=== PATIENT | female | born 1985 | race Caucasian/White ===

== ENCOUNTER 2021-08-18 21:52 | Emergency (ER) | payer OTHER, SELFPAY ==
[2021-08-18 22:11] VITALS: BP 130/67; PULSE 74; RESP 18; TEMP 36.6; O2SAT 99; BMI 41.1
--- NOTE | 2021-08-18 23:57 | ED_ITS ---
HPI - Dental/Oral General Chief complaint: Dental/Oral Stated complaint: Dental pain Time Seen by Provider: 08/18/21 23:40 Source: patient Mode of arrival: ambulatory Limitations: no limitations History of Present Illness HPI Narrative: Patient presents to ED for right open molar tooth pain for a week. Patient den ies any facial swelling, neck swelling, drooling, fever, chills, chest pain, shortness of breath any recent trauma to the face. MD Complaint: tooth pain Related Data Previous Rx's Medication Instructions Recorded clindamycin HCl 300 mg capsule 300 mg PO TID 10 Days #30 cap 08/19/21 oxycodone-acetaminophen 5 mg-325 1 tab PO TID PRN #9 tab 08/19/21 mg tablet (Percocet) Allergies Allergy/AdvReac Type Severity Reaction Status Date / Time aspirin [ASA] Allergy Unknown ANAPHYLAXIS, Verified 08/19/21 00:07 facial swelling, facial swelling penicillamine Allergy Unknown facial Verified 08/19/21 00:07 swelling Penicillins [PENICILLINS] Allergy Unknown ANAPHYLAXIS Verified 08/19/21 00:07 Penicillins Allergy Unknown facial Uncoded 07/25/19 00:00 swelling Review of Systems Review of Systems: Toothache Yes all other systems are reviewed and are negative PMFSH Social History Social History Advance Directives: No Advance Directives Information Provided: No Patient : No Physical Exam Vital Signs: Vital Signs: Last Vital Signs Temp 97.9 F 08/18/21 22:11 Pulse 74 08/18/21 22:11 Resp 18 08/18/21 22:11 BP 130/67 08/18/21 22:11 Pulse Ox 99 08/18/21 22:11 BMI result Body Mass Index 41.1 Const: General: cooperative, healthy appearing, comfortable, no acute distress, well developed, alert, awake and Physically active Orientation/con sciousness: patient oriented x3 HENMT: Other: Negative for any facial swelling or mass on palpation Head: Yes normal to inspection, Yes No palpable skull fracture present, Yes normocephalic, Yes atraumatic and No abrasion Teeth image: 1. Tenderness on palpation. Negative for pus discharge, gum swelling, redness, or trismus. Eyes: General: appearance normal, both eyes and all related structures Neck: Neck: Yes normal visual inspection, Yes full ROM, Yes no lymphadenopathy, Yes no meningeal signs, Yes trachea midline, Yes supple, No anterior neck swelling and No tender Chest: Chest palpation & inspection: normal inspection of the chest and normal palpation of entire chest wall Resp: Effort & Inspection: normal respiratory effort and able to speak in complete sentences Auscultation: clear to auscultation bilaterally Cardio: Jugular venous distension: no JVD Heart sounds: S1 normal heart sound present and S2 normal heart sound present GI: Inspection: Yes normal to inspection and No abdominal wall ecchymosis Palpation (GI): Soft to palpation, not firm, nontender, no guarding and not rigid : General: No CVA tenderness and Yes no CVA tenderness Back/Spine/Pelvis: Back: no CVA tenderness, No CVA tenderness and No back tenderness Skin: General skin exam: no rashes or lesions noted and elasticity normal Neuro: General: patient oriented x3, gait normal, no meningeal signs and CN's II-XI intact bilaterally Cranial nerves: Yes CN's II-XII intact bilaterally Extrem: General: Yes normal to inspection and Yes full ROM Psych: Appearance: grossly normal, well kempt and not disheveled Course Course Course Narrative: Toothache. Reevaluation(s) Reevaluation #1: Patient given pain medication. Patient will be discharged with pain medication antibiotics. Patient is safe for discharge MDM - Dental/Oral MDM Narrative Medical decision making narrative: Dental pain Discharge Plan Discharge Clinical Impression: Toothache Patient Disposition: Home, Self-Care Instructions: Toothache (ED) Additional Instructions: Regrese al servicio de urgencias de inmediato por cualquier hinchaz?n facial, babeo, cambio de voz, dolor de muelas intenso, masa palpable en las enc?as o la evonne, o cualquier otro s?ntoma preocupante. Debe hacer un seguimiento con un dentista lo antes posible. Prescriptions: New clindamycin HCl 300 mg capsule 300 mg PO TID 10 Days Qty: 30 0RF oxycodone-acetaminophen [Percocet] 5-325 mg tablet 1 tab PO TID PRN (Reason: pain) Qty: 9 0RF Stand Alone Forms: Work/School Release Interventions: ED Discharge Assessment Last Done: 08/19/21 00:25 Discharge Date/Time: 08/19/21 00:26 Print Language: Ukrainian
[2021-08-19] MEDS: oxyCODONE HCl Immed Release 5 MG TABLET PO (00:08)
== END 2021-08-19 00:26 | disposition home or self-care (01) ==
PROVIDERS: Emergency Provider Internal Medicine
DX: K08.89 Other specified disorders of teeth and supporting structures (principal)
CPT/HCPCS: 99283; 99284

== ENCOUNTER 2021-08-21 17:41 | Emergency (ER) | payer OTHER, SELFPAY ==
[2021-08-21 17:48] VITALS: BP 165/83; PULSE 103; RESP 18; TEMP 36.1; O2SAT 100; BMI 40.4
[2021-08-21] MEDS: dexAMETHasone sod phosphate 10 MG/ML VIAL IVPUSH (18:14)
[2021-08-21] MEDS: Famotidine/PF 20 MG/2 ML VIAL IVPUSH (18:14)
[2021-08-21] MEDS: diphenhydrAMINE HCL 50 MG/ML VIAL IVPUSH (18:14)
[2021-08-21 18:27] VITALS: PULSE 84; RESP 15; O2SAT 100
--- NOTE | 2021-08-21 19:06 | PC.NURSE ---
PT THROAT S/SX BETTER DRINKING WATER AND SPEAKING IN FULL SENTENCES.
--- NOTE | 2021-08-21 19:27 | ED_ITS ---
HPI - Allergic Reaction General Chief complaint: Allergic Reaction <GRACIE Estrada Last Filed: 08/21/21 19:37> Stated complaint: allergic reaction/diff breathing <GRACIE Estrada Last Filed: 08/21/21 19:37> Time Seen by Provider: 08/21/21 17:58 <GRACIE Estrada Last Filed: 08/21/21 19:37> History of Present Illness HPI narrative: Patient complains that she took a Motrin and felt like her face was swollen and felt and itchiness in her throat and was concerned she might be having an allergic reaction, she has had allergy to aspirin She denies rash she denies chest pain no vomiting <GRACIE Estrada Last Filed: 08/21/21 19:37> Related Data Home medications: Previous Rx's Medication Instructions Recorded clindamycin HCl 300 mg capsule 300 mg PO TID 10 Days #30 cap 08/19/21 oxycodone-acetaminophen 5 mg-325 1 tab PO TID PRN #9 tab 08/19/21 mg tablet (Percocet) cetirizine 10 mg capsule 10 mg PO DAILY PRN #14 cap 08/21/21 prednisone 20 mg tablet 60 mg PO DAILY 3 Days #9 tab 08/21/21 <GRACIE Estrada Last Filed: 08/21/21 19:37> Allergies/adverse reactions: Allergies Allergy/AdvReac Type Severity Reaction Status Date / Time aspirin [ASA] Allergy Unknown ANAPHYLAXIS, Verified 08/21/21 17:48 facial swelling, facial swelling penicillamine Allergy Unknown facial Verified 08/21/21 17:48 swelling Penicillins [PENICILLINS] Allergy Unknown ANAPHYLAXIS Verified 08/21/21 17:48 Penicillins Allergy Unknown facial Uncoded 07/25/19 00:00 swelling <GRACIE Estrada Last Filed: 08/21/21 19:37> Review of Systems Review of Systems: Positive for facial swelling and throat irritation Negatives are no fever no chills no dizziness weakness no fainting no feeling faint no headache no difficulty breathing or swallowing no chest pain no shortness of breath no abdominal pain no vomiting no skin rash <GRACIE Estrada Last Filed: 08/21/21 19:37> Yes all other systems are reviewed and are negative <GRACIE Estrada Last Filed: 08/21/21 19:37> PMFSH Past Medical History Source: nursing notes reviewed <GRACIE Estrada - Last Filed: 08/21/21 19:37> Medical History: Medical History (Updated 08/21/21 @ 19:32 by GRACIE Estrada) Tooth pain <GRACIE Estrada - Last Filed: 08/21/21 19:37> Social History Social History: Social History Advance Directives: No Advance Directives Information Provided: No <GRACIE Estrada - Last Filed: 08/21/21 19:37> Physical Exam ED Vital Signs: Vital Signs - 24 hr 08/21/21 17:48 08/21/21 18:27 08/21/21 19:57 Temperature 97 F Pulse Rate 103 H 84 65 Respiratory Rate 18 15 15 Blood Pressure 165/83 H 138/75 Pulse Oximetry 100 100 100 BMI result Body Mass Index 40.4 <GRACIE Estrada - Last Filed: 08/21/21 19:37> Vital Signs - 24 hr 08/21/21 17:48 08/21/21 18:27 08/21/21 19:57 Temperature 97 F Pulse Rate 103 H 84 65 Respiratory Rate 18 15 15 Blood Pressure 165/83 H 138/75 Pulse Oximetry 100 100 100 BMI result Body Mass Index 40.4 <GRACIE Tee - Last Filed: 08/21/21 20:02> General appearance is uncomfortable appearing, no acute distress Head is normocephalic atraumatic Eyes are somewhat red with some periorbital edema, pupils equal round reactive extraocular motions are intact Pharynx is normal in appearance with no tongue swelling no uvula or pharyngeal swelling, there is no drooling, no impairment of breathing or swallowing The neck is supple There is no neck swelling The chest is clear to auscultation bilateral no wheezing Heart no murmur Abdomen soft nontender Extremities full range of motion x4 Skin no rash <GRACIE Estrada - Last Filed: 08/21/21 19:37> Course Course Course Narrative: Patient was given antihistamine and steroid with good response At 07:15 case was signed out to physician assistant Robbins to re-evaluate the patient who will be observed for another hour and if all is well to be discharged <GRACIE Estrada - Last Filed: 08/21/21 19:37> Reevaluation(s) Reevaluation #1: On re-evaluation patient reports symptomatic improvement. No appreciable swelling/facial edema. Talking in complete sentences, lungs CTA, no wheezing, uvula midline, no intraoral swelling. Safe for DC at this time <GRACIE Tee - Last Filed: 08/21/21 20:02> Time: 20:02 <GRACIE Tee - Last Filed: 08/21/21 20:02> Discharge Plan Discharge Clinical Impression: Allergic reaction <GRACIE Estrada Last Filed: 08/21/21 19:37> Patient Disposition: Home, Self-Care <GRACIE Estrada Last Filed: 08/21/21 19:37> Instructions: Allergy Testing (ED) <GRACIE Estrada Last Filed: 08/21/21 19:37> Additional Instructions: Your treated with antihistamine and steroids and had a good response Use medications as prescribed Return any time for difficulty breathing, throat swelling, any worse condition or any concerns Follow with primary doctor You may be allergic to Motrin or similar medications so do not take them use Tylenol instead All [id number] pain killers that are not Tylenol may have a cross- reactivity with aspirin and Motrin so use only Tylenol for pain <GRACIE Estrada Last Filed: 08/21/21 19:37> Prescriptions: New cetirizine 10 mg capsule 10 mg PO DAILY PRN (Reason: allergy symptoms) Qty: 14 0RF prednisone 20 mg tablet 60 mg PO DAILY 3 Days Qty: 9 0RF No Action clindamycin HCl 300 mg capsule 300 mg PO TID 10 Days Qty: 30 0RF oxycodone-acetaminophen [Percocet] 5-325 mg tablet 1 tab PO TID PRN (Reason: pain) Qty: 9 0RF <GRACIE Estrada Last Filed: 08/21/21 19:37> Referrals: Physician,None [Primary Care Provider] - 2 days Henry Guillen DO [Physician] - 2 days <GRACIE Estrada Last Filed: 08/21/21 19:37> Stand Alone Forms: Work/School Release <GRACIE Estrada Last Filed: 08/21/21 19:37>
[2021-08-21 19:57] VITALS: BP 138/75; PULSE 65; RESP 15; O2SAT 100
== END 2021-08-21 20:14 | disposition home or self-care (01) ==
PROVIDERS: Emergency Provider Internal Medicine
DX: R21 Rash and other nonspecific skin eruption (principal); T39.015A Adverse effect of aspirin, initial encounter; Z79.899 Other long term (current) drug therapy
CPT/HCPCS: 96374; 96376; 99284; J1100; J1200

== ENCOUNTER 2021-09-12 08:23 | Outpatient (REF) | payer OTHER, SELFPAY ==
[2021-09-12 09:03] LABS: MANUAL DIFF FLAG NO
[2021-09-12 09:50] LABS: Basophils Percent Auto 0.2 % (0-2); Eosinophils Absolute Auto 0.2 X10*3/uL (0.0-0.4); Eosinophils Percent Auto 2.4 % (0-4); Hematocrit 39.2 % (37.0-47.0); Imm Gran Abs Auto 0.07 X10*3/uL (0.00-0.03); Imm Gran Pct Auto 0.7 % (0.0-0.4); Lymphocytes Percent Auto 20.3 % (20-40); Mean Corpuscular HGB Conc 30.6 g/dl (31.0-35.0); Mean Corpuscular Hemoglobin 25.3 pg (27.0-33.0); Mean Corpuscular Volume 82.5 fL (80.0-98.0); Mean Platelet Volume 10.5 fL (9.4-12.3); Monocytes Absolute Auto 0.6 X10*3/uL (0.1-1.2); Monocytes Percent Auto 6.3 % (2-11); Neutrophils Absolute Auto 6.8 x10*3/uL (2.0-8.3); Neutrophils Percent Auto 70.1 % (45-73); Platelet Count 288 X10*3/uL (160-400); Red Blood Count 4.75 X10*6/uL (4.20-5.50); Red Cell Distribution Width 15.3 % (11.0-16.0); White Blood Count 9.8 X10*3/uL (4.8-10.8)
[2021-09-12 10:30] LABS: Alanine Aminotransferase 37 U/L (0-31); Albumin Level 3.8 g/dL (3.5-5.0); Alkaline Phosphatase 113 U/L (39-117); Anion Gap 12 (12-20); Aspartate Amino Transferase 20 U/L (5-31); Bilirubin Total 0.2 mg/dL (0.0-1.0); Blood Urea Nitrogen 11 mg/dL (9-16); Calcium 9.4 mg/dL (8.4-10.2); Carbon Dioxide 27 mmol/L (22-29); Chloride 103 mmol/L (96-108); Cholesterol 165 mg/dL; Estimated Glomerular Filt Rate > 60; Glucose Fasting 110 mg/dL (60-99); HDL Cholesterol 38 mg/dL; LDL Cholesterol Calculated 101 mg/dl; Potassium 4.7 mmol/L (3.3-5.1); Sodium 137 mmol/L (135-145); Total Protein 6.6 g/dL (6.5-8.0); Triglycerides 130 mg/dL
[2021-09-12 10:53] LABS: TSH reflex Free T4 2.09 uIU/mL (0.32-4.0)
== END 2021-09-12 08:24 | disposition home or self-care (01) ==
LOC: HO.LAB 08:23
PROVIDERS: PCP Nurse Practitioner Family; Visit Provider Nurse Practitioner Family
DX: J30.89 Other allergic rhinitis (principal); E78.00 Pure hypercholesterolemia, unspecified; I10 Essential (primary) hypertension; E03.9 Hypothyroidism, unspecified; Z76.89 Persons encountering health services in other specified circumstances
CPT/HCPCS: 36415; 80053; 80061; 84443; 85025

== ENCOUNTER 2021-10-28 09:19 | Outpatient (REF) | payer OTHER, SELFPAY ==
[2021-10-28 17:21] LABS: CT PCR NOT DETECTED (Not Detect.); NG PCR NOT DETECTED (Not Detect.)
[2021-10-29 13:33] LABS: BV Int Neg Control Negative (Negative); BV Int Pos Control Positive (Positive)
[2021-11-02 22:06] LABS: HPV mRNA E6/E7 rflx Not Detected (Not Detected)
== END 2021-10-28 09:20 | disposition home or self-care (01) ==
LOC: HO.LAB 09:19
PROVIDERS: PCP Nurse Practitioner Family; Visit Provider Advanced Practice Midwife
DX: Z01.419 Encounter for gynecological examination (general) (routine) without abnormal findings (principal); Z11.59 Encounter for screening for other viral diseases; Z11.4 Encounter for screening for human immunodeficiency virus [HIV]; Z87.42 Personal history of other diseases of the female genital tract; Z11.3 Encounter for screening for infections with a predominantly sexual mode of transmission; Z11.8 Encounter for screening for other infectious and parasitic diseases; Z11.51 Encounter for screening for human papillomavirus (HPV); E66.9 Obesity, unspecified; Z68.41 Body mass index [BMI] 40.0-44.9, adult; Z88.6 Allergy status to analgesic agent; Z88.0 Allergy status to penicillin; Z98.51 Tubal ligation status; Z83.3 Family history of diabetes mellitus; Z80.49 Family history of malignant neoplasm of other genital organs
CPT/HCPCS: 87480; 87491; 87510; 87591; 87624; 87660; 88142

== ENCOUNTER 2021-11-23 09:21 | Outpatient (REF) | payer OTHER, SELFPAY ==
--- NOTE | 2021-11-23 09:24 | EMG_ITS ---
This is a 35-year-old woman who has had pain, numbness, and tingling in both hands since 2019. PHYSICAL EXAMINATION: On examination, she is alert and oriented with normal intellectual functions. Cranial nerves II through XII are normal. Muscle tone and strength are normal. No Tinel or Phalen sign. IMPRESSION: Carpal tunnel syndrome. Nerve conduction EMG study: Moderate carpal tunnel syndrome bilaterally, slightly worse on the left. Normal EMG of the left C5-T1 innervated muscles. MD DIANA Slaughter/ABBIE / [id number]
== END 2021-11-23 09:22 | disposition home or self-care (01) ==
LOC: HO.NEURO 09:21
PROVIDERS: PCP Nurse Practitioner Family; Visit Provider Nurse Practitioner Family
DX: M79.641 Pain in right hand (principal); M79.642 Pain in left hand
CPT/HCPCS: 95885; 95913